=== PATIENT | female | born 1945 | race Caucasian/White ===

== ENCOUNTER 2016-09-11 13:40 | Observation (INO) | payer BC, MEDICARE ==
[2016-09-11] MEDS ORDERED: NS 0.9% 1000 ML* 1,000 ML IV ONE (15:16)
--- NOTE | 2016-09-11 15:58 | RAD ---
INDICATION: Dizziness. COMPARISON: There are no prior studies available for comparison. TECHNIQUE: Contiguous axial sections of the brain were obtained from the skull base to the vertex without contrast. FINDINGS: The ventricles, cisterns and sulci are enlarged consistent with age-related atrophy. No significant focal abnormality or mass effect is seen. There is no evidence for hemorrhage. No significant focal osseous abnormality is seen. The visualized portion of the paranasal sinuses and mastoid air cells appear clear. IMPRESSION: NO EVIDENCE FOR GROSS ACUTE INFARCT, MASS EFFECT OR HEMORRHAGE.
[2016-09-11 16:29] LABS: Hematocrit 39 % (35-47); Hemoglobin 13.1 g/dl (12.0-16.0); Mean Corpuscular HGB Conc 33 g/dl (31-36); Mean Corpuscular Hemoglobin 29 pg (27-31); Mean Corpuscular Volume 86 fL (80-97); Mean Platelet Volume 10 um3 (7.4-10.4); Red Cell Distribution Width 14 % (10.5-15); White Blood Count 7.5 10^3/ul (3.5-10.8)
[2016-09-11 16:44] LABS: Albumin 4.1 g/dL (3.2-5.2); BUN/Creatinine Ratio 23.7 (8-20); Calcium 9.2 mg/dL (8.6-10.3); EGFR Non-African American 75.5 (>60); Globulin 2.9 g/dL (2-4); Potassium 3.6 mmol/L (3.5-5.0); Total Bilirubin 0.4 mg/dL (0.2-1.0)
[2016-09-11 17:03] LABS: Urine Bilirubin Negative (Negative); Urine Glucose Negative (Negative); Urine Nitrite Negative (Negative)
--- NOTE | 2016-09-11 17:14 | RAD ---
HISTORY: Dizziness COMPARISONS: None VIEWS: 2: Frontal dual-energy and lateral views of the chest. FINDINGS: CARDIOMEDIASTINAL SILHOUETTE: The cardiomediastinal silhouette is normal. ELIER: The elier are normal. PLEURA: The costophrenic angles are sharp. No pleural abnormalities are noted. LUNG PARENCHYMA: The lungs are clear. ABDOMEN: The upper abdomen is clear. There is no subphrenic gas. BONES AND SOFT TISSUES: No bone or soft tissue abnormalities are noted. OTHER: None. IMPRESSION: NO ACTIVE CARDIOPULMONARY DISEASE.
--- NOTE | 2016-09-11 18:39 | ED ---
Enrique Grigsby Billy, scribed for Jean Braun MD on 09/11/16 at 1528 . Dizziness - HPI Summary HPI Summary: Patient is a 71 year-old female coming to [facility] presenting with intermittent episodes of sudden onset dizziness. She describes room-spinning and near- syncope sensation accompanied with intermittent headaches and blurred vision. She also states she had 1x episode of diffuse numbness in her extremities, which she describes as "tingling from head to toe." Patient's , who is in the room with her, states that he has not noticed any episodes of slurred speech. Dizziness is worse with head movement, improved with rest. In fact, she denies any dizziness while lying down. 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 She states that these symptoms are very abnormal and concerning for her. Patient reports recent urinary symptoms, including dysuria. - History Of Current Complaint Chief Complaint: EDDizziness Stated Complaint: DIZZY /SEARCHING FOR WORDS Time Seen by Provider: 09/11/16 15:16 Hx Obtained From: Patient Onset/Duration: Still Present Timing: Intermittent Episode Lasting Severity Initially: Moderate Severity Currently: Moderate Character: Room Spinning, Dizzy Aggravating Factor(s): Change In Head Position Alleviating Factor(s): Rest, Lying Down Associated Signs And Symptoms: Positive: Visual Changes, Other: - headache, aphasia (forgetting innersole fitter's name), isolated episode of diffuse numbness/ tingling several days ago. Negative: Slurred Speech - Allergies/Home Medications Home Medications: Home Medications Levothyroxine TAB* [Synthroid TAB*] 88 mcg PO DAILY 09/11/16 [History Confirmed 09/11/16] PMH/Surg Hx/FS Hx/Imm Hx Endocrine/Hematology History: Reports: Hx Thyroid Disease Cardiovascular History: Denies: Hx Coronary Artery Disease Infectious Disease History: Denies: Traveled Outside the [place] in Last 30 Days - Family History Known Family History: Positive: Diabetes, Other - CVA - Social History Occupation: Employed Full-time Alcohol Use: Occasionally Hx Substance Use: No Substance Use Type: Reports: None Hx Tobacco Use: No Smoking Status (MU): Never Smoked Tobacco Review of Systems Positive: Blurred Vision Positive: dysuria Neurological: Other - aphasia (unable to remember innersole fitter's name), dizziness Positive: Headache, Paresthesia, Numbness. Negative: Slurred Speech All Other Systems Reviewed And Are Negative: Yes Physical Exam - Summary Physical Exam Summary: VITAL SIGNS: Reviewed. GENERAL: Patient is a well developed and nourished female who is lying comfortable in the stretcher. Patient is not in any acute respiratory distress. HEAD AND FACE: No signs of trauma. No ecchymosis, hematomas or skull depressions. No sinus tenderness. EYES: PERRLA, EOMI x 2, No injected conjunctiva, no nystagmus. No photophobia. EARS: Hearing grossly intact. Ear canals and tympanic membranes are within normal limits. MOUTH: Oropharynx within normal limits. NECK: Supple, trachea is midline, no adenopathy, no JVD, no carotid bruit, no c- spine tenderness, neck with full ROM. No meningeal signs, no Kernig's or brudzinskis signs. CHEST: Symmetric, no tenderness at palpation LUNGS: Clear to auscultation bilaterally. No wheezing or crackles. CVS: Regular rate and rhythm, S1 and S2 present, no murmurs or gallops appreciated. ABDOMEN: Soft, non-tender. No signs of distention. No rebound no guarding, and no masses palpated. Bowel sounds are normal. EXTREMITIES: FROM in all major joints, no edema, no cyanosis or clubbing. NEURO: Alert and oriented x 3. No acute neurological deficits. Speech is normal and follows commands. SKIN: Dry and warm Triage Information Reviewed: Yes Vital Signs On Initial Exam: Initial Vitals Temp Pulse Resp BP Pulse Ox 99.4 F 64 12 155/103 97 09/11/16 13:43 09/11/16 13:43 09/11/16 13:43 09/11/16 13:43 09/11/16 13:43 Vital Signs Reviewed: Yes Diagnostics - Vital Signs Vital Signs Temp Pulse Resp BP Pulse Ox 09/11/16 13:43 99.4 F 64 12 155/103 97 - Laboratory Result Diagrams: 09/11/16 16:20 09/11/16 16:20 Lab Statement: Any lab studies that have been ordered have been reviewed, and results considered in the medical decision making process. - Radiology CXR Xray Interpretation: No Acute Changes Radiology Interpretation Completed By: Radiologist - CT brain CT Interpretation: No Acute Changes CT Interpretation Completed By: Radiologist - EKG 7209 EKG Interpretation: NSR 67 bpm, no ST elevations, TWI in V4 and V5. National Institutes Of Health - NIH Scale Level of Consciousness: Alert/Keenly Responsive Ask Patient the Month and His/Her Age: Both Correct Ask Pt to Open/Close Eyes and Utility Bill Collection Clerk/Release Non-Paretic Hand: Both Correctly Best Gaze (Only Horizontal Eye Movement): Normal Visual Field Testing: No Visual Loss Facial Paresis-Pt to Smile & Close Eyes or Grimace Symmetry: Normal/Symmetrical Motor Function - Right Arm: No Drift-Holds 10 Seconds Motor Function - Left Arm: No Drift-Holds 10 Seconds Motor Function - Right Leg: No Drift-Holds 10 Seconds Motor Function - Left Leg: No Drift-Holds 10 Seconds Limb Ataxia-Must be out of Proportion to Weakness Present: Absent Sensory (Use Pinprick to Test Arms/Legs/Trunk/Face): Normal Best Language (Describe Picture, Name Items): No Aphasia Dysarthria (Read Several Words): Normal Extinction and Inattention: No Abnormality Total Score: 0 Re-Evaluation - Re-Evaluation First Eval Re-Evaluation Time: 17:11 Comment: Labs and imaging reviewed with the patient. Plan for admission discussed. Patient is agreeable with the plan. Patient is asymptomatic at this time. Dizzy Course/Dx - Course Assessment/Plan: Patient is a 71 year-old female coming to [facility] presenting with intermittent episodes of sudden onset dizziness. She describes room- spinning and near-syncope sensation accompanied with intermittent headaches and blurred vision. She also states she had 1x episode of diffuse numbness in her extremities, which she describes as "tingling from head to toe." Patient's , who is in the room with her, states that he has not noticed any episodes of slurred speech. Dizziness is worse with head movement, improved with rest. In fact, she denies any dizziness while lying down. 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 She states that these symptoms are very abnormal and concerning for her. Patient reports recent urinary symptoms, including dysuria. Bloodwork WNL, UA shows no UTI. CT of the brain shows no evidence of acute infarct, mass effect, or hemorrhage. CXR shows no active cardiopulmonary disease. The patient at this time is asypmtomatic, however because of her earlier symptoms, I discussed my physical exam findings with Dr. Bledsoe who agreed to accept the patient to the [facility] for further workup and management. She is hemodynamically stable, A& Ox3. - Diagnoses Differential Diagnosis/HQI/PQRI: Coronary Artery Disease, Seizure, Transient Ischemic Attack, Vasovagal Reaction Provider Diagnoses: Dizziness and giddiness - Provider Notifications Discussed Care Of Patient with: Dr. Bledsoe (hospitalist) @ 1701: accepts admission. Discharge - Discharge Plan Condition: Stable Disposition: ADMITTED TO [facility] documentation as recorded by the Enrique peace Billy accurately reflects the service I personally performed and the decisions made by me, Jean Braun MD.
[2016-09-11 18:49] LABS: TSH (Thyroid Stimulating Horm) 0.78 mcIU/mL (0.34-5.60)
[2016-09-11 18:56] LABS: Free T4 1.03 ng/dL (0.61-1.12)
[2016-09-11] MEDS ORDERED: Iohexol 350* (CONTRAST) 500 ML MDV IV ONE (18:58)
[2016-09-11] MEDS ORDERED: Enoxaparin(*) 40 MG/0.4 ML SYR SUBCUT SCH (19:00)
--- NOTE | 2016-09-11 19:39 | RAD ---
HISTORY: Severe dizziness COMPARISONS: Head CT dated September 11, 2016 TECHNIQUE: The following sequences were obtained of the head: Sagittal T1-weighted images, axial T2-weighted images, axial FLAIR images, axial susceptibility weighted images, axial T1-weighted images. Additionally, axial diffusion-weighted images were obtained with calculated apparent diffusion coefficients. FINDINGS: HEMORRHAGE/INFARCT: There is no hemorrhage or acute infarct. MASSES/SHIFT: There is no mass or shift. EXTRA-AXIAL SPACES/MENINGES: There is an intermediate T1, high T2/FLAIR signal in axial mass along the left superior frontal gyrus anteriorly measuring 1.2 cm in diameter and 0.8 cm in depth. SULCI AND VENTRICLES: The sulci and ventricles are normal in size and position for the patient's stated age. CEREBRUM: There are multiple scattered small foci of elevated T2/FLAIR signal within the periventricular and subcortical white matter. BRAINSTEM: There are no focal parenchymal abnormalities. CEREBELLUM: There are no focal parenchymal abnormalities. The cerebellar tonsils are normal in size and position. SELLA: There is a partially empty sella PINEAL: The pineal region is clear. CP ANGLE/TEMPORAL BONES: The labyrinthine structures are grossly normal. VESSELS: Normal flow-voids are noted within the visualized vertebral vasculature. DIFFUSION ABNORMALITIES: There are no diffusion abnormalities. PARANASAL SINUSES/MASTOIDS: The paranasal sinuses are clear. ORBITS: The orbits are unremarkable. BONES AND SOFT TISSUE: No bone or soft tissue abnormalities are noted. OTHER: None IMPRESSION: 1. 1.2 CM EXTRA-AXIAL MASS ALONG LEFT FRONTAL LOBE, MOST CONSISTENT WITH MENINGIOMA. IF THERE IS A HISTORY OF MALIGNANCY, DURAL BASED METASTATIC DISEASE IS WITHIN THE DIFFERENTIAL BUT IS CONSIDERED LESS LIKELY. 2. PARTIALLY EMPTY SELLA. 3. THERE ARE MULTIPLE FOCI OF ELEVATED T2/FLAIR SIGNAL WITHIN THE PERIVENTRICULAR AND SUBCORTICAL WHITE MATTER. WHILE THESE FINDINGS ARE NONSPECIFIC, THEY CAN BE SEEN IN ASSOCIATION WITH MIGRAINE HEADACHE, THE SEQUELA OF PREVIOUS INFECTION OR INFLAMMATION, AND CHRONIC SMALL VESSEL ISCHEMIA. DEMYELINATING DISEASE IS ALSO WITHIN THE DIFFERENTIAL, BUT IS CONSIDERED LESS LIKELY IN THE ABSENCE OF THE APPROPRIATE CLINICAL PRESENTATION.
--- NOTE | 2016-09-11 21:01 | HP ---
ADMISSION HISTORY AND PHYSICAL: DATE OF ADMISSION: 09/11/16 PRIMARY CARE PROVIDER: Dr. Emma Gonzalez. ADMITTING PROVIDER: LEIGH Carvajal SUPERVISING PHYSICIAN: Dr. Sylvie Andrew.* (DICTATED BY LEIGH CARVAJAL) CHIEF COMPLAINT: Dizziness. HISTORY OF PRESENT ILLNESS: This is a 71-year-old female with only past medical problem being hypothyroidism who presented to the emergency department with complaints of severe dizziness. The patient states that her symptoms started probably last week and seems to be less severe. She has had intermittent episodes of dizziness and headache. Starting on Thursday, 5 days ago now, she has had intermittent sudden onset of severe dizziness associated with the headache. These symptoms have been intermittent and not necessarily associated with any change in position or movement of her head. She has no associated nausea or vomiting. This morning, her symptoms started again suddenly with dizziness and headache, but she also noted difficulty with word finding and feels that she has been becoming progressively more forgetful lately. Apart from this last week, she has no history of similar symptoms. She states that she had some chronic tinnitus, but denies any hearing changes. She denies any recent illness. Denies chest pain or palpitations. She has not fallen because of her dizziness or lost consciousness. The patient notes that perhaps she had a significant trauma in May of this past year where she fell through a floor. She did not lose consciousness or hit her head. She had multiple body aches and did not seek medical care at that time, but she has been significantly fatigued since that incident and has simply just "not felt herself." Also, of note, starting last week, she did have some mild dysuria, but states that she was drinking a significant amount of fluid and those symptoms have since resolved. PAST MEDICAL HISTORY: Hypothyroidism. PAST SURGICAL HISTORY: 1. Appendectomy. 2. Breast reduction. HOME MEDICATIONS: Levothyroxine 88 mcg p.o. daily. FAMILY HISTORY: Her father had a history of acute CT at a young age and multiple TIAs. Mother had history of diabetes and cancer. SOCIAL HISTORY: The patient has a less than 5-pack-year smoking history. No regular alcohol consumption and lives at home with her . REVIEW OF SYSTEMS: As noted above in HPI and otherwise negative. PHYSICAL EXAMINATION GENERAL: This is a very pleasant middle-aged female who appears younger than her stated age accompanied by her who is sitting in no acute distress and states that she is currently asymptomatic. VITAL SIGNS: Temperature 99.4 degrees Fahrenheit, pulse 64 beats per minute, respiratory rate 12 per minute, oxygen saturation 97% on room air, and blood pressure 155/103 mmHg. HEENT: Head is normocephalic, atraumatic. Mucous membranes are pink and moist. NECK: Supple, free of lymphadenopathy without obvious JVD. RESPIRATORY: Lungs are clear to auscultation without wheezes, crackles, or rhonchi. CARDIOVASCULAR: The patient has a regular rate and rhythm, but there is a subtle murmur appreciated, seems to be systolic in nature and this sounds to be new according to the patient. ABDOMEN: Soft and nontender to palpation. EXTREMITIES: No lower extremity edema. SKIN: Limited exam shows no concerning rashes or lesions. NEUROLOGIC: Cranial nerves II through XII are intact. Strength is 5/5 in all extremities. Sensation is grossly intact. Gait was not specifically assessed, but the patient states that she was asymptomatic with ambulating to the bathroom just a few minutes before. LABORATORY EVALUATION: CBC shows a white blood cell count of 7500, hemoglobin 13.1 g/dL, and a platelet count of 263,000. INR normal at 0.90. Comprehensive metabolic panel is unremarkable with a sodium of 137 mmol/L, potassium 3.6 mmol/L, BUN 18, creatinine 0.76, and an estimated GFR of 75. Lactic acid normal at 0.6. Total bilirubin and transaminases within normal limits. Troponin negative. TSH and free T4 are pending. Urinalysis is unremarkable. IMAGING: Chest x-ray shows no acute disease. EKG shows normal sinus rhythm. CT of the brain shows no acute process. ASSESSMENT AND PLAN: This is a 71-year-old female with history of hypothyroidism who presents with complaints of intermittent severe dizziness. This morning, she had associated difficulty word finding and has had associated headache. The patient is being admitted to observation status for further workup. 1. Severe dizziness - the patient's pattern of symptoms is not consistent with either orthostasis or vertigo. Her symptoms of associated word finding is concerning as to whether this may represent transient ischemic attacks. She also has a subtle murmur appreciated on exam. We will obtain a CTA of the head and neck to evaluate for significant stenosis or aneurysm. We will also obtain an MRI of the brain. We will maintain on continuous telemetry monitoring to evaluate for dysrhythmias. We will obtain a fasting lipid panel in the morning. She also has a subtle murmur noted and we will obtain an echocardiogram. Her murmur seems to be consistent perhaps with aortic stenosis which certainly could cause dizziness consistent with her symptoms. 2. Hypothyroidism - continue levothyroxine. TSH and free T4 are also pending, undercorrected or overcorrected, thyroid could certainly contribute to her complaints of dizziness as well. 3. Code status: The patient is full code. 4. Healthcare proxy is her . 5. DVT prophylaxis: The patient is at moderate risk for deep venous thrombosis and will be placed on Lovenox 40 mg subcu daily. DISPOSITION: The patient is being admitted to observation status with complaints of severe intermittent dizziness. I anticipate discharge tomorrow following completion of appropriate workup. LEIGH CARVAJAL CC: Dr. Emma Gonzalez * [id number]/[facility] #: [id number] CHAIM
[2016-09-11] MEDS: predniSONE TAB* 50 MG PO SCH (21:19)
[2016-09-11] MEDS ORDERED: hydrALAZINE IV* 20 MG/ML VIAL IV PRN (22:05)
[2016-09-12] MEDS: predniSONE TAB* 50 MG PO SCH ×2 (01:44→07:30)
[2016-09-12] MEDS ORDERED: Levothyroxine TAB* 88 MCG TAB PO SCH (06:00)
[2016-09-12 06:27] LABS: HDL Cholesterol 55.8 mg/dL
[2016-09-12] MEDS: Acetaminophen TAB* 325 MG PO PRN ×2 (06:45→14:07)
[2016-09-12] MEDS ORDERED: Iohexol 350* (CONTRAST) 500 ML MDV IV ONE (07:13)
[2016-09-12 07:27] LABS: Benzodiazepine Urine Screen None Detected (None Detect)
[2016-09-12] MEDS ORDERED: diPHENhydraMINE PO* 50 MG PO ONE (08:00)
--- NOTE | 2016-09-12 10:59 | RAD ---
Indication: Severe dizziness. IV contrast: Administered 80.0 ml of OMNIPAQUE 350 mg/ml CTA of the head and neck was performed after IV contrast administration. Coronal and sagittal reconstructed images were obtained. The origins of the great vessels are grossly unremarkable. The origins of the right common carotid and left common carotid arteries are unremarkable although the left common carotid artery appears to be somewhat tortuous. The left internal carotid artery demonstrates plaque at the origin. Otherwise no evidence of carotid dissection is noted. The right common carotid artery demonstrates some soft plaque at its origin. No significant stenosis or carotid artery dissection is noted. Both vertebral arteries are patent. Basilar artery is unremarkable. CTA of the head demonstrates no aneurysmal dilatation or branch occlusion. Anterior and middle cerebral arteries are unremarkable. Posterior cerebral arteries are unremarkable. IMPRESSION: MINIMAL PLAQUE IS NOTED IN THE INTERNAL CAROTID ARTERY ORIGINS BILATERALLY. THE VERTEBRAL ARTERIES APPEAR PATENT. NO EVIDENCE OF A RESIDUAL DILATATION OR BRANCH OCCLUSION IS NOTED.
--- NOTE | 2016-09-12 14:04 | ECHO ---
Patient: CARLY MAGUIRE [facility] Rec#: [id number] : 1945 Date: 09/12/2016 Age: 71y Height: 160 cm / 63.0 in Weight: 74 kg / 163.1 lbs Sex: F BSA: 1.77 Room#: 434 Admit Date#: 09/11/2016 Type: Inpatient Referring: Constantino Blackburn Reading: Fauzia Montana MD Family Law Legal Assistant: Sriram Zamora RDCS CC: Emma Gonzalez MD Transthoracic Echocardiogram Indication: MURMUR BP: 141/82 HR: 96 Rhythm: NSR Findings History: Hypothyroidism, former smoker Technical Comments: The study quality is fair. completed 1030 The study is technically limited due to patient body habitus. The study is technically limited due to the patient's smoking history. Left Ventricle: The left ventricular chamber size is normal. Global left ventricular wall motion and contractility are within normal limits. There is normal left ventricular systolic function. The estimated ejection fraction is 55-60%. Abnormal left ventricular diastolic filling is observed, consistent with impaired relaxation. Left Atrium: The left atrial chamber size is normal. Right Ventricle: The right ventricular cavity size is normal. The right ventricular global systolic function is normal. Right Atrium: The right atrial cavity size is normal. Aortic Valve: The aortic valve is trileaflet. There is aortic annular calcification. There is no evidence of aortic regurgitation. There is no evidence of aortic stenosis. Mitral Valve: There is a trace of mitral regurgitation. There is no evidence of mitral stenosis. Tricuspid Valve: There is no evidence of tricuspid valve regurgitation. Pulmonic Valve: The pulmonic valve structure is not well visualized. Pericardium: There is no pericardial effusion. Aorta: There is no dilatation of the ascending aorta. There is no dilatation of the aortic arch. There is no dilation of the aortic root. Pulmonary Artery: The main pulmonary artery is not well visualized. Venous: The inferior vena cava appears normal in size. There is a greater than 50% respiratory change in the inferior vena cava dimension. Conclusions The left ventricular chamber size is normal. There is normal left ventricular systolic function. The estimated ejection fraction is 55-60%. Abnormal left ventricular diastolic filling is observed, consistent with impaired relaxation. No significant valvular disease. Measurements Name Value Normal Range RVIDd (AP) 2D 13 cm (0.9 - 2.6) RVDdMajor (2D) 2.8 cm (2.2 - 4.4) RAd ISD 4CH 3.9 cm (3.4 - 4.9) RA (A4C)W 2.5 cm (2.9 - 4.6) IVSd (2D) 1.1 cm (0.6 - 1) LVPWd (2D) 0.9 cm (0.6 - 1) LVIDd (2D) 4.4 cm (3.6 - 5.4) LVIDs (2D) 3.2 cm - LV FS (2D) 28 % (25 - 45) Aortic Annulus 1.6 cm (1.4 - 2.6) Ao root diameter (2D) 25 cm (2.1 - 3.5) Ascending Ao 2.7 cm (2.1 - 3.4) Aortic arch 2.7 cm (1.8 - 3.4) LA dimension (AP) 2D 3.6 cm (2.3 - 3.8) LAd ISD 4CH 4.9 cm (2.9 - 5.3) LA ISD 4CH W 3 cm (2.5 - 4.5) Name Value Normal Range LA ESV SP 4CH (A/L) 81 ml - LA ESV SP 2CH (A/L) 54 ml - LA ESV BP (A/L) 69 ml - LA ESV BP (A/L) index 39.01 ml/m2 - LA ESV SP 4CH (MOD) 74 ml - LA ESV SP 2CH (MOD) 50 ml - Name Value Normal Range MV E-wave Vmax 0.77 m/sec - MV deceleration time 94 msec - MV A-wave Vmax 0.96 m/sec - MV E:A ratio 0.79 ratio - LV septal e' Vmax 0.06 m/sec - LV lateral e' Vmax 0.07 m/sec - LV E:e' septal ratio 12.8 ratio - LV E:e' lateral ratio 11 ratio - Name Value Normal Range LVOT diameter 1.7 cm - LVOT Vmax 0.9 m/sec - Name Value Normal Range IVC diameter 1.66 cm -
[2016-09-12 15:26] VITALS: BP 154/85
--- NOTE | 2016-09-13 03:13 | DS ---
DISCHARGE SUMMARY: DATE OF ADMISSION: 09/11/16 DATE OF DISCHARGE: 09/12/16 PRIMARY CARE PROVIDER: Dr. Emma Gonzalez. PRIMARY DIAGNOSIS: Vertigo. SECONDARY DIAGNOSES: 1. Headache. 2. Newly discovered 1.5 cm meningioma. 3. Hypertension. MEDICATIONS ON DISCHARGE: 1. Acetaminophen 650 mg every 4 hours as needed for pain. 2. Hydrochlorothiazide 25 mg daily. 3. Levothyroxine 88 mcg daily. PERTINENT IMAGING DURING THE HOSPITAL STAY: Brain MRI. Impression: 1.2 cm extra- axial mass along the left frontal lobe most consistent with meningioma. History of malignancy, dural based metastatic disease with a differential, but that is considered less likely. Partially empty sella. There are multiple foci of elevated T2 FLAIR signal of the periventricular and subcortical white matter. Transthoracic echocardiogram. Impression: Left ventricular chamber size and function is normal, estimated LVEF of 55% to 60%. There is abnormal left ventricular diastolic filling consistent with impaired relaxation. No significant valvular disease. Head CTA. Impression: Minimal plaque is noted in the internal carotid artery origins bilaterally. Vertebral arteries appear patent. No evidence of residual dilatation or branch occlusion is noted. HISTORY OF PRESENT ILLNESS AND HOSPITAL COURSE: This is a 71-year-old female with past medical history as outlined in the history of present illness on the day of admission, presented to the hospital with worsening headache and dizziness. Of note, the patient notes that her headaches have been fairly consistent although not occurring everyday at least since June with intermittent episodes of increasing dizziness described as a disequilibrium occurring at least for several weeks and then worse over the last week and then much more severe the day of presentation. She also relates longstanding history of tinnitus for which she underwent ENT evaluation without notable hearing loss per her report. On the day of presentation, she did note some difficulty with word finding. She was admitted to the hospital, underwent MRI of the head, did not indicate any CVA; however, did indicate a newly discovered meningioma. CTA of her head did not indicate any appreciable vascular occlusions. Her echocardiogram of heart indicated only compensated diastolic heart dysfunction as well as aortic sclerosis. Laboratory data was largely unremarkable. She did have a mild headache during the course of the hospital stay; however, disequilibrium was largely improved. Underlying etiology of her disequilibrium still remains in question. It is unclear that meningioma was contributing to her increasing headache frequency, although it does seem quite unlikely that it is contributing to her vertiginous symptoms. The location of the meningioma was discussed with Neurology, although did not consult formally. I have placed information for her to call and schedule follow up with Dr. Werner, Neurosurgery, to follow up meningioma. She has no history of cancer. Therefore , screening CAT scan was not performed to evaluate for metastatic disease. The patient may benefit from followup with ENT for her continued vertiginous symptoms as well as Neurology for her chronic headaches as well as Neurosurgery for following her meningioma. The patient states she takes her medications infrequently and has run out of her hydrochlorothiazide. Her vital signs indicated hypertension ranging from systolic 137 to 186 during her hospital stay. Her hydrochlorothiazide was refilled for the patient and sent to her pharmacy. There were no complications of this patient's hospital stay. On the day of discharge, the patient had a grossly normal neurological exam, although has difficulty walking heel-to-toe. B12, folate labs should be repeated upon discharge and followup here. Reasons to return to the hospital including, but not limited to recurrent or worsening symptoms, asymmetric strength, or paraesthesias, worsening headaches, changes in her vision, nausea, vomiting, lightheadedness, loss of consciousness , near loss of consciousness, inability to obtain or tolerate medications were discussed with the patient and her . They acknowledged understanding. TIME SPENT: Greater than 60 minutes were spent on the discharge of the patient , greater than half was [id number] with the patient. CC: Dr. Emma Gonzalez; Imtiaz Werner MD * [id number]/[facility] #: [id number] [facility] HOSPITALGiovani
== END 2016-09-12 16:40 | disposition home or self-care (01) ==
LOC: ED 13:40 → MEDTELE 17:30
PROVIDERS: ADMIT Internal Medicine; ATTEND Internal Medicine
DX: R42 Dizziness and giddiness (principal); R51 Headache; E03.9 Hypothyroidism, unspecified; H53.8 Other visual disturbances; R20.0 Anesthesia of skin; G93.9 Disorder of brain, unspecified; R94.31 Abnormal electrocardiogram [ECG] [EKG]; F17.210 Nicotine dependence, cigarettes, uncomplicated; Z79.899 Other long term (current) drug therapy
CPT/HCPCS: 36415; 70450; 70496; 70498; 70551; 71020; 80053; 80061; 80307; 81003; 83605; 84439; 84443; 84484; 85025; 85610; 86850; 86900; 86901; 93005; 93306; 96361; 96374; 96375; 99283; 99406; A9270-GY; G0378; J0360; J1650; J7512; Q9967

== ENCOUNTER 2019-04-11 20:36 | Emergency (ER) | payer MEDICARE ==
--- NOTE | 2019-04-11 23:10 | ED ---
Upper Extremity Pain - HPI Summary HPI Summary: The patient is a 73 y/o F presenting to [facility] with a chief complaint of pain in the right shoulder worst in the lateral deltoid with sudden onset at 1926 s/p falling into a steel door. She reports that she had been going down the stairs and turned around but fell into the door with the right shoulder hitting the door. She denies any head injury, LOC, or blurred vision with the fall, but she is now experiencing decreased ROM secondary to pain, intermittent episodes of numbness and tingling in the right hand, and she had an episode of nausea without vomiting immediately after the event. Currently, her pain is rated 8/10 in severity. The pain is aggravated by movement and somewhat alleviated by rest. She has not used any medications [employer] to treat the pain. PMHx: hypothyroid , HTN, arthritis. Nonsmoker, occasional EtOH, no substance use. Medications reviewed. Allergies noted. - History of Current Complaint Chief Complaint: EDExtremityUpper Stated Complaint: FELL DOWN STAIRS PER PT Time Seen by Provider: 04/11/19 22:55 Hx Obtained From: Patient Mechanism Of Injury: Fall From A Standing Position - into a door with her shoulder Onset/Duration: Started Hours Ago - at 1926, Traumatic, Still Present Timing: Lasting Hours Pain Location: Shoulder - right Character: Aching Aggravating Factor(s): Movement Alleviating Factor(s): Rest - to some relief Associated Signs & Symptoms: Positive: Numbness/Tingling - in right hand, intermittent, Nausea, Other - Negative: head injury, LOC, visual changes.. Negative: Vomiting Related History: Dominant Hand Right - Allergies/Home Medications Allergies/Adverse Reactions: Allergies Allergy/AdvReac Type Severity Reaction Status Date / Time iodine Allergy Unknown Verified 04/11/19 20:43 Reaction Details Penicillins Allergy Unknown Verified 04/11/19 20:43 Reaction Details shellfish derived Allergy Unknown Verified 04/11/19 20:43 Reaction Details PMH/Surg Hx/FS Hx/Imm Hx Endocrine/Hematology History: Reports: Hx Thyroid Disease - Hypothyroid Denies: Hx Diabetes Cardiovascular History: Reports: Hx Hypertension - MEDICATED Denies: Hx Coronary Artery Disease, Hx Pacemaker/ICD Respiratory History: Denies: Hx Asthma History: Denies: Hx Renal Disease Musculoskeletal History: Reports: Hx Arthritis Sensory History: Reports: Hx Contacts or Glasses - Glasses Denies: Hx Hearing Aid Opthamlomology History: Reports: Hx Contacts or Glasses - Glasses Neurological History: Reports: Other Neuro Impairments/Disorders - Increasing dizziness Psychiatric History: Denies: Hx Panic Disorder - Cancer History Hx Chemotherapy: No Hx Radiation Therapy: No - Surgical History Surgical History: Yes Surgery Procedure, Year, and Place: APPENDECTOMY;. BREAST REDUCTION;. LASER - EYE Infectious Disease History: No Infectious Disease History: Denies: Traveled Outside the [place] in Last 30 Days - Family History Known Family History: Positive: Diabetes, Other - CVA - Social History Alcohol Use: Occasionally Hx Substance Use: No Substance Use Type: Reports: None Hx Tobacco Use: No Smoking Status (MU): Never Smoked Tobacco Type: Cigarettes Amount Used/How Often: 0.25 packs/day Review of Systems Positive: Other - Negative: visual changes. Positive: Nausea. Negative: Vomiting Positive: Decreased ROM - in RUE secondary to pain Neurological: Other - Negative: head injury, LOC. Positive: Numbness - and tingling intermittent in the right hand All Other Systems Reviewed And Are Negative: Yes Physical Exam - Summary Physical Exam Summary: General: Well-developed, Well-nourished female. Appears to be in mild discomfort with movement. HEENT: Normocephalic, Atraumatic. Eyes: Conjuctiva normal, PERRL. Ears: TMs within normal limits. Nares: (-) discharge, (-) erythema. Oropharynx: Clear, mucous membranes moist, (-) exudates. Neck: Soft, FROM, (-) lymphadenopathy, (-) thyromegaly, (-) JVD. Cardiovascular: Normal sinus rhythm, (-) murmur. Lungs: Clear to auscultation bilaterally (-) wheezes, (-) rales, (-) rhonchi. Abdomen: Soft, non-tender, non-distended, (-) organomegaly, normal bowel sounds. Back: (-) CVA tenderness Extremities: Tenderness of the humeral head, Limited ROM secondary to pain. Normal pulses and capillary refill distally, normal sensation. No edema. Skin: Warm, dry, (-) rash. Neuro: Alert and oriented x3, no focal deficits. Psychiatric: Mood normal, affect normal. Triage Information Reviewed: Yes Vital Signs On Initial Exam: Initial Vitals Temp Pulse Resp BP Pulse Ox 98.2 F 74 18 159/75 98 04/11/19 20:39 04/11/19 20:39 04/11/19 20:39 04/11/19 20:39 04/11/19 20:39 Vital Signs Reviewed: Yes Diagnostics - Vital Signs Vital Signs Temp Pulse Resp BP Pulse Ox 04/11/19 20:39 98.2 F 74 18 159/75 98 - Laboratory Lab Statement: Any lab studies that have been ordered have been reviewed, and results considered in the medical decision making process. - Radiology Right Shoulder XR Radiology Interpretation Completed By: ED Physician, Radiologist Summary of Radiographic Findings: Fracture of the right humeral head, mildly displaced. ED physician has interpreted this report. Pending official read. Re-Evaluation - Re-Evaluation First Eval Re-Evaluation Time: 23:40 Comment: I have discussed results with the patient. Discussed symptoms that warrant immediate return to ED. Course/Dx - Course Course Of Treatment: Pt is a 73 y/o F with cc of decreased ROM secondary to pain in the right lateral deltoid s/p falling on the shoulder without head injury or LOC, but she is now experiencing intermittent episodes of numbness and tingling in the right hand and had an episode of nausea without vomiting immediately following the event. Upon physical exam, the patient appears to be in mild discomfort with movement, there is tenderness of the humeral head with limited ROM secondary to pain, pulses and capillary refill distally are normal, and there is normal sensation. Right Shoulder x-ray, per my interpretation, reveals fracture of the right humeral head with mild displacement. She is given Toradol IM in the ED for pain relief. She is advised to keep the sling on the arm until she follows up with orthopedics. She is also recommended Ibuprofen and ice for pain relief at home. She understands and agrees with this plan. - Diagnoses Provider Diagnoses: Fracture of humeral head, right, closed Discharge ED - Sign-Out/Discharge Documenting (check all that apply): Patient Departure - Patient will be discharged home. Patient Received Moderate/Deep Sedation with Procedure: No - Discharge Plan Condition: Stable Disposition: HOME Patient Education Materials: Proximal Humerus Fracture (ED) Referrals: Emma Gonzalez MD [Primary Care Provider] - 3 Days Samuel Dexter MD [Medical Doctor] - 1 Day Additional Instructions: Follow up with orthopedics to schedule an appointment. Use Ibuprofen for pain as needed. Also use ice for up to 20 minutes an hour. Keep the arm in the sling until you are advised anything else by the operating room specialist. Return to the emergency department for any new or worsening symptoms. - Billing Disposition and Condition Condition: STABLE Disposition: Home - Attestation Statements Document Initiated by Bruno: Yes Documenting Scribe: Clementina Rodriguez Provider For Whom Bruno is Documenting (Include Credential): Dr. Joselin Rhodes MD Scribe Attestation: IClementina, scribed for Dr. Joselin Rhodes MD on 04/12/19 at 0102. Scribe Documentation Reviewed: Yes Provider Attestation: The documentation as recorded by the Clementina peace accurately reflects the service I personally performed and the decisions made by me, Dr. Joselin Rhodes MD Status of Scribe Document: Viewed
[2019-04-11] MEDS ORDERED: Ketorolac INJ* 30 MG/ML 1 ML VIAL IM ONE (23:15)
[2019-04-12 00:04] VITALS: BP 167/86
--- NOTE | 2019-04-12 13:24 | PN ---
Progress Note - Progress Note Date of Service: 04/11/19 Note: Final read per radiology: REPORT AND IMPRESSION: #. Nondisplaced fracture at the surgical neck with extension to involve the greater tuberosity with minimal displacement at the greater tuberosity. Negative for additional fracture. #. Normal acromioclavicular and glenohumeral joint alignment. #. No gross soft tissue contour abnormality. R1F Preliminary Imaging Read R1F Pt. treated appropriately. No change in treatment needed at this time.
== END 2019-04-11 23:55 | disposition home or self-care (01) ==
LOC: ED 20:36
DX: S42.214A Unspecified nondisplaced fracture of surgical neck of right humerus, initial encounter for closed fracture (principal); W10.9XXA Fall (on) (from) unspecified stairs and steps, initial encounter; Y92.9 Unspecified place or not applicable; E03.9 Hypothyroidism, unspecified; I10 Essential (primary) hypertension; Z79.899 Other long term (current) drug therapy; Z88.0 Allergy status to penicillin; Z91.041 Radiographic dye allergy status
CPT/HCPCS: 96372; 99282; J1885

== ENCOUNTER 2022-12-17 07:04 | Inpatient (IN) ==
[2022-12-17 07:49] LABS: ABS Basophils 0.1 10^3/uL (0.0-0.1); ABS Eosinophils 0.1 10^3/uL (0.0-0.5); ABS Monocytes 0.7 10^3/uL (0.0-0.9); ABS Neutrophils 6.2 10^3/uL (1.5-7.6); Eosinophil % 1.2 %; Hemoglobin 11.3 g/dL (11.5-14.3); Lymphocyte % 35.8 %; Mean Corpuscular Hemoglobin 28.1 pg (27-33); Mean Corpuscular Hgb Conc 33.1 g/dL (31-36); Mean Corpuscular Volume 84.8 fL (80-97); Mean Platelet Volume 8.5 fL (7.5-11.2); Platelet Count 320 10^3/uL (150-450); Red Blood Count 4.01 10^6/uL (3.63-4.92); White Blood Count 11.1 10^3/uL (3.8-11.8)
[2022-12-17] MEDS ORDERED: NS 0.9% 1000 ml BAG 1,000 ML IV SCH (08:15)
[2022-12-17 08:17] LABS: Activated Partial Thrombo Time 26.3 seconds (26.0-38.0); INR 1.06 (0.88-1.18)
[2022-12-17 08:33] LABS: ALT 12 U/L (7-52); Albumin 3.3 g/dL (3.2-5.2); Albumin/Globulin Ratio 1.3 (1-3); Alkaline Phosphatase 65 U/L (35-149); Blood Urea Nitrogen 22 mg/dL (6-24); CO2 Carbon Dioxide 25 mmol/L (22-32); Calcium 8.6 mg/dL (8.6-10.3); Chloride 105 mmol/L (101-111); Cholesterol 182 mg/dL; Creatinine, Serum 0.72 mg/dL (0.51-0.95); Globulin 2.6 g/dL (2-4); Glucose 99 mg/dL (70-100); HDL Cholesterol 46.5 mg/dL; LDL Cholesterol 119 mg/dL; Sodium 137 mmol/L (135-145); Total Protein 5.9 g/dL (6.4-8.9); Triglycerides 85 mg/dL; eGFR CKD-EPI 87.1 (>60)
[2022-12-17 09:02] LABS: Anion Gap 7 mmol/L (2-16)
[2022-12-17 10:28] LABS: Potassium Redraw 3.3 mmol/L (3.5-5.0)
[2022-12-17] MEDS ORDERED: KCL 20 MEQ/100 ML IVPREMIX 20 MEQ/100 ML BAG IV ONE (10:37)
[2022-12-17] MEDS: Enoxaparin 40 MG/0.4 ML SYR SUBCUT SCH (12:57)
[2022-12-17 14:15] LABS: Urine Appearance Clear; Urine Bilirubin Negative (Negative); Urine Blood Negative (Negative); Urine Color Straw; Urine Glucose Negative (Negative); Urine Ketones Negative (Negative); Urine Nitrite Negative (Negative); Urine Protein Negative (Negative); Urine Specific Gravity 1.015 (1.002-1.030); Urine Urobilinogen Negative (Negative)
[2022-12-18] MEDS ORDERED: NS 0.9% 1000 ml BAG 1,000 ML IV ONE (06:55)
[2022-12-18] MEDS ORDERED: Aspirin EC 81 mg TAB.EC (enteric coated) PO ONE (10:04)
[2022-12-18] MEDS: Enoxaparin 40 MG/0.4 ML SYR SUBCUT SCH (14:46)
[2022-12-18 15:03] LABS: Calcium 8.9 mg/dL (8.6-10.3); Creatinine, Serum 0.7 mg/dL (0.51-0.95); Magnesium 2.1 mg/dL (1.9-2.7); Potassium 4.4 mmol/L (3.5-5.0); eGFR CKD-EPI 90.1 (>60)
[2022-12-19] MEDS ORDERED: NS 0.9% 500 ml BAG 500 ML IV ONE (01:43)
[2022-12-19] MEDS: Enoxaparin 40 MG/0.4 ML SYR SUBCUT SCH (10:10)
[2022-12-19] MEDS ORDERED: Magnesium Hydroxide LIQ 30 ML UDC PO PRN (13:19)
[2022-12-19] MEDS: Polyethylene Glycol 3350 17 GM PACKET PO PRN (14:19)
[2022-12-19] MEDS: Senna TAB 8.6 mg TAB PO PRN (14:19)
[2022-12-20] MEDS ORDERED: Lactated Ringers 1000 ml BAG 1,000 ML IV ONE (08:28)
[2022-12-20] MEDS: Enoxaparin 40 MG/0.4 ML SYR SUBCUT SCH (10:58)
[2022-12-20] MEDS: Senna TAB 8.6 mg TAB PO PRN (10:58)
[2022-12-20] MEDS: Polyethylene Glycol 3350 17 GM PACKET PO PRN (10:58)
[2022-12-21] MEDS: Polyethylene Glycol 3350 17 GM PACKET PO SCH (07:46)
[2022-12-21] MEDS: Enoxaparin 40 MG/0.4 ML SYR SUBCUT SCH (12:01)
[2022-12-22 06:29] LABS: Calcium 8.5 mg/dL (8.6-10.3); Creatinine, Serum 0.81 mg/dL (0.51-0.95); Potassium 4.1 mmol/L (3.5-5.0); eGFR CKD-EPI 75.7 (>60)
[2022-12-22] MEDS: Polyethylene Glycol 3350 17 GM PACKET PO SCH (08:05)
[2022-12-22] MEDS: Enoxaparin 40 MG/0.4 ML SYR SUBCUT SCH (11:11)
[2022-12-23] MEDS: Polyethylene Glycol 3350 17 GM PACKET PO SCH (07:56)
[2022-12-23] MEDS: Enoxaparin 40 MG/0.4 ML SYR SUBCUT SCH (11:34)
[2022-12-24] MEDS: Polyethylene Glycol 3350 17 GM PACKET PO SCH (09:11)
[2022-12-24] MEDS: Enoxaparin 40 MG/0.4 ML SYR SUBCUT SCH (12:31)
[2022-12-25] MEDS: Polyethylene Glycol 3350 17 GM PACKET PO SCH (08:37)
[2022-12-25] MEDS: Enoxaparin 40 MG/0.4 ML SYR SUBCUT SCH (12:19)
[2022-12-26] MEDS: Polyethylene Glycol 3350 17 GM PACKET PO SCH (08:19)
[2022-12-26 11:25] VITALS: BP 146/53
== END 2022-12-26 13:05 | disposition home or self-care (01) | DRG 65 ==
LOC: ED 07:04 → EDHOLD 08:04 → SUATTDRO 08:04 → EDHOLD 17:25 → MEDTELE 18:03
PROVIDERS: ADMIT Internal Medicine; ATTEND Internal Medicine

== ENCOUNTER 2023-01-26 10:48 | Observation (INO) ==
[2023-01-26 12:51] LABS: ABS Basophils 0.1 10^3/uL (0.0-0.1); ABS Eosinophils 0.1 10^3/uL (0.0-0.5); ABS Lymphocytes 2.5 10^3/uL (1.0-4.8); ABS Monocytes 0.7 10^3/uL (0.0-0.9); ABS Neutrophils 6.4 10^3/uL (1.5-7.6); ABS Nucleated RBC 0.01 10^3/ul; Eosinophil % 1.4 %; Hematocrit 37.9 % (35-45); Hemoglobin 12.9 g/dL (11.5-14.3); Lymphocyte % 25.2 %; Mean Corpuscular Hemoglobin 28.5 pg (27-33); Mean Corpuscular Hgb Conc 34.2 g/dL (31-36); Mean Corpuscular Volume 83.3 fL (80-97); Mean Platelet Volume 8.3 fL (7.5-11.2); Nucleated Red Blood Cells % 0.1 /100 WBC (0.0-0.4); Platelet Count 435 10^3/uL (150-450); Red Blood Count 4.54 10^6/uL (3.63-4.92); Red Cell Distribution Width 13.9 % (12-17); White Blood Count 9.8 10^3/uL (3.8-11.8)
[2023-01-26 12:55] LABS: Urine Appearance Cloudy; Urine Bilirubin Negative (Negative); Urine Blood Negative (Negative); Urine Color Yellow; Urine Glucose Negative (Negative); Urine Ketones Negative (Negative); Urine Nitrite Negative (Negative); Urine Protein Negative (Negative); Urine Specific Gravity 1.016 (1.002-1.030); Urine Urobilinogen Negative (Negative)
[2023-01-26 13:12] LABS: Albumin 3.8 g/dL (3.2-5.2); Albumin/Globulin Ratio 1.1 (1-3); Calcium 9.9 mg/dL (8.6-10.3); Creatinine, Serum 0.79 mg/dL (0.51-0.95); Globulin 3.5 g/dL (2-4); Potassium 4.1 mmol/L (3.5-5.0); Total Bilirubin 0.5 mg/dL (0.2-1.0); Total Protein 7.3 g/dL (6.4-8.9)
[2023-01-26] MEDS ORDERED: Labetalol IV 5 MG/ML 20 ml VIAL IV PUSH PRN (17:08)
[2023-01-26] MEDS ORDERED: Magnesium Hydroxide LIQ 30 ML UDC PO PRN (17:11)
[2023-01-26] MEDS ORDERED: Senna TAB 8.6 mg TAB PO PRN (17:11)
[2023-01-26 19:24] LABS: Urine Appearance Clear; Urine Bilirubin Negative (Negative); Urine Blood Negative (Negative); Urine Color Yellow; Urine Glucose Negative (Negative); Urine Ketones Negative (Negative); Urine Nitrite Negative (Negative); Urine Protein Negative (Negative); Urine Urobilinogen Negative (Negative)
[2023-01-26 19:25] LABS: Urine Bacteria 1+ (Absent); Urine Red Blood Cell Trace(0-2/hpf) (Absent); Urine Squamous Epithelial Cell Present (Absent); Urine White Blood Cell Trace(0-5/hpf) (Absent)
[2023-01-26 19:40] LABS: Activated Partial Thrombo Time 32.6 seconds (26.0-38.0); INR 1.12 (0.88-1.18)
[2023-01-26 19:43] LABS: HDL Cholesterol 33.3 mg/dL
[2023-01-26] MEDS ORDERED: Enoxaparin 40 MG/0.4 ML SYR SUBCUT SCH (20:00)
[2023-01-26 20:04] LABS: TSH Ultra Thyroid Stim Horm 0.1 mcIU/mL (0.34-5.60)
[2023-01-26] MEDS: Fluticasone NASAL SPRAY 50MCG 16 gm SPRAY BTL BOTH NARES SCH (20:49)
[2023-01-27] MEDS ORDERED: Polyethylene Glycol 3350 17 GM PACKET PO SCH (09:00)
[2023-01-27] MEDS: Fluticasone NASAL SPRAY 50MCG 16 gm SPRAY BTL BOTH NARES SCH (10:11)
[2023-01-27 14:21] VITALS: BP 128/78
== END 2023-01-27 15:18 | disposition home or self-care (01) ==
LOC: EDHOLD 10:48 → ED 10:48 → SUATTDRO 16:42 → MEDTELE 18:21
PROVIDERS: ADMIT Internal Medicine; ATTEND Internal Medicine

== ENCOUNTER 2023-09-14 12:05 | Observation (INO) ==
[2023-09-14 14:36] LABS: Hematocrit 36.4 % (35-45); Hemoglobin 12.3 g/dL (11.5-14.3); Mean Corpuscular Hgb Conc 33.8 g/dL (31-36); Mean Corpuscular Volume 85.9 fL (80-97); Mean Platelet Volume 8.6 fL (7.5-11.2); Platelet Count 286 10^3/uL (150-450); Red Blood Count 4.24 10^6/uL (3.63-4.92); Red Cell Distribution Width 14.2 % (12-17); White Blood Count 20.6 10^3/uL (3.8-11.8)
[2023-09-14 14:56] LABS: Albumin/Globulin Ratio 1.2 (1-3); Calcium 9.4 mg/dL (8.6-10.3); Creatinine, Serum 0.93 mg/dL (0.51-0.95); Globulin 3.3 g/dL (2-4); Potassium 3.9 mmol/L (3.5-5.0); Total Bilirubin 1.1 mg/dL (0.2-1.0); Total Protein 7.3 g/dL (6.4-8.9); eGFR CKD-EPI 63.7 (>60)
[2023-09-14 15:25] LABS: ABS Basophils 0.1 10^3/uL (0.0-0.1); ABS Monocytes 0.6 10^3/uL (0.0-0.9); ABS Nucleated RBC 0.01 10^3/ul; Eosinophil % 0.1 %; Lymphocyte % 4.6 %
[2023-09-14] MEDS: Iohexol 350 (CONTRAST) 500 ML MDV IV ONE (15:55)
[2023-09-14 15:59] LABS: C Reactive Protein 324.23 mg/L (<8.01)
[2023-09-14] MEDS: Lactated Ringers 1000 ml BAG 1,000 ML IV ONE (17:11)
[2023-09-14] MEDS: Cefepime 2 GM in Dextrose 2 GM/50 ML BAG IV ONE (17:11)
[2023-09-14] MEDS: metroNIDAZOLE IV 500 MG/100ML 500 MG/100 ML BAG IVPB ONE (17:14)
[2023-09-14 17:32] LABS: Urine Appearance Clear; Urine Bilirubin Negative (Negative); Urine Blood Negative (Negative); Urine Color Light-Yellow; Urine Glucose Negative (Negative); Urine Ketones Negative (Negative); Urine Nitrite Negative (Negative); Urine Protein Negative (Negative); Urine Specific Gravity 1.037 (1.002-1.030); Urine Urobilinogen Negative (Negative)
[2023-09-14] MEDS ORDERED: Morphine 2 MG/ML SYRINGE IV PRN (17:56)
[2023-09-14] MEDS: Lactated Ringers 1000 ml BAG 1,000 ML IV SCH (19:29)
[2023-09-14] MEDS: Enoxaparin 40 MG/0.4 ML SYR SUBCUT SCH (19:29)
[2023-09-15] MEDS: metroNIDAZOLE IV 500 MG/100ML 500 MG/100 ML BAG IVPB SCH ×2 (01:58→02:05)
[2023-09-15 06:32] LABS: ABS Lymphocytes 1.2 10^3/uL (1.0-4.8); ABS Monocytes 0.5 10^3/uL (0.0-0.9); Eosinophil % 0.1 %; Hematocrit 31.3 % (35-45); Hemoglobin 10.9 g/dL (11.5-14.3); Lymphocyte % 7.6 %; Mean Corpuscular Hemoglobin 29.9 pg (27-33); Mean Corpuscular Hgb Conc 34.8 g/dL (31-36); Mean Corpuscular Volume 85.9 fL (80-97); Mean Platelet Volume 9.2 fL (7.5-11.2); Platelet Count 233 10^3/uL (150-450); Red Blood Count 3.64 10^6/uL (3.63-4.92); Red Cell Distribution Width 14.3 % (12-17); White Blood Count 15.8 10^3/uL (3.8-11.8)
[2023-09-15 06:54] LABS: Calcium 8.5 mg/dL (8.6-10.3); Creatinine, Serum 0.66 mg/dL (0.51-0.95); Magnesium 1.9 mg/dL (1.9-2.7); Potassium 3.7 mmol/L (3.5-5.0); eGFR CKD-EPI 90.9 (>60)
[2023-09-15] MEDS: cefTRIAXone 2 gm/50 mL D5W 2 GM/50 ML BAG IV SCH (22:25)
[2023-09-16 07:19] LABS: ABS Eosinophils 0.1 10^3/uL (0.0-0.5); ABS Lymphocytes 1.3 10^3/uL (1.0-4.8); ABS Monocytes 0.6 10^3/uL (0.0-0.9); ABS Neutrophils 11.7 10^3/uL (1.5-7.6); Eosinophil % 0.4 %; Hematocrit 30.9 % (35-45); Hemoglobin 10.6 g/dL (11.5-14.3); Lymphocyte % 9.8 %; Mean Corpuscular Hemoglobin 29.6 pg (27-33); Mean Corpuscular Hgb Conc 34.3 g/dL (31-36); Mean Corpuscular Volume 86.3 fL (80-97); Mean Platelet Volume 8.9 fL (7.5-11.2); Platelet Count 262 10^3/uL (150-450); Red Blood Count 3.58 10^6/uL (3.63-4.92); Red Cell Distribution Width 14.3 % (12-17); White Blood Count 13.7 10^3/uL (3.8-11.8)
[2023-09-16 07:36] LABS: Calcium 8.2 mg/dL (8.6-10.3); Creatinine, Serum 0.61 mg/dL (0.51-0.95); Potassium 3.4 mmol/L (3.5-5.0); eGFR CKD-EPI 92.6 (>60)
[2023-09-16] MEDS: Potassium EFFERVES 25 meq TAB PO ONE (09:21)
[2023-09-16 10:16] VITALS: BP 119/71
== END 2023-09-16 13:15 | disposition home or self-care (01) ==
LOC: ED 12:05 → EDHOLD 17:23 → INTOOBSV 17:23 → EDHOLD 21:38 → MED 23:52
PROVIDERS: ADMIT Hospitalist; ATTEND Hospitalist